=== PATIENT | male | born 1980 | race Caucasian/White ===

== ENCOUNTER 2017-04-14 16:46 | Emergency (ER) | payer OTHER ==
[2017-04-14 17:11] LABS: Basophils # (Auto) 0.1 K/mm3 (0.0-0.1); Basophils % (Auto) 0.8 % (0.0-1.8); Eosinophils # (Auto) 0.1 K/mm3 (0.0-0.4); Eosinophils % (Auto) 0.9 % (0.0-4.3); Hematocrit 49.4 % (35.5-45.6); Lymphocytes # (Auto) 3.3 K/mm3 (1.2-5.4); Mean Corpuscular HGB Conc 32 % (32-34); Mean Corpuscular Hemoglobin 28 pg (28-32); Mean Corpuscular Volume 85 fl (84-94); Monocytes # (Auto) 0.5 K/mm3 (0.0-0.8); Monocytes % (Auto) 6.7 % (0.0-7.3); Platelet Count 247 K/mm3 (140-440); Red Blood Count 5.83 M/mm3 (3.65-5.03); Red Cell Distribution Width 13.1 % (13.2-15.2)
[2017-04-14 19:34] LABS: BUN/Creatinine Ratio 17; Blood Urea Nitrogen 15 mg/dL (9-20); Calcium 10.5 mg/dL (8.4-10.2); Hemolysis Index 27
[2017-04-14 21:44] LABS: Bilirubin,Urine NEG (Negative); Blood,Urine SM (Negative); Color,Urine Yellow (Yellow); Mucus,Urine FEW /HPF; Nitrite,Urine NEG (Negative); Protein,Urine <15 mg/dL mg/dL (Negative); Urobilinogen,Urine < 2.0 mg/dL (<2.0)
[2017-04-14] MEDS ORDERED: NORVASC ONE (22:10)
--- NOTE | 2017-04-14 23:42 | Emergency Department Report ---
ED General Adult HPI - General Chief complaint: High BP Stated complaint: BP HIGH Time Seen by Provider: 04/14/17 23:19 Source: patient Mode of arrival: Ambulatory Limitations: No Limitations - History of Present Illness Initial comments: 37-year-old male past medical history none presents with complaint of concern for elevated blood pressure. Patient states that 3 weeks ago he had his blood pressure checked in a pharmacy and it was elevated and he was advised by pharmacist to have his blood pressure rechecked. Patient is awake alert and oriented 3 denies chest pain palpitations shortness of breath headache lightheadedness blurry vision abdominal pain nausea vomiting up her lower extremity paresthesias. Patient does not currently have primary care doctor states he was in the ED with a family member and decided to have his blood pressure rechecked today. Patient is fully lucid cooperative and ambulatory. Denies smoking, alcohol or drug use. -: This afternoon Severity scale (0 -10): 0 - Related Data Previous Rx's Medication Instructions Recorded Last Taken Type Blood Pressure Test Kit-Large 1 each QDAY #1 kit 04/15/17 Unknown Rx [Blood Pressure Monitor] amLODIPine [Norvasc] 5 mg PO DAILY #30 tab 04/15/17 Unknown Rx Allergies Allergy/AdvReac Type Severity Reaction Status Date / Time No Known Allergies Allergy Verified 04/14/17 22:17 ED Review of Systems ROS: Stated complaint: BP HIGH Other details as noted in HPI Constitutional: denies: chills, fever Eyes: denies: eye pain, eye discharge, vision change ENT: denies: ear pain, throat pain Respiratory: denies: cough, shortness of breath, wheezing Cardiovascular: denies: chest pain, palpitations Endocrine: no symptoms reported Gastrointestinal: denies: abdominal pain, nausea, diarrhea Genitourinary: denies: urgency, dysuria Musculoskeletal: denies: back pain, joint swelling, arthralgia Skin: denies: rash, lesions Neurological: denies: headache, weakness, paresthesias Psychiatric: denies: anxiety, depression Hematological/Lymphatic: denies: easy bleeding, easy bruising ED Past Medical Hx - Past Medical History Previous Medical History?: Yes Hx Asthma: Yes - Surgical History Past Surgical History?: No - Social History Smoking Status: Never Smoker Substance Use Type: Alcohol - Medications Home Medications: Home Medications Medication Instructions Recorded Confirmed Last Taken Type Blood Pressure Test Kit-Large 1 each QDAY #1 kit 04/15/17 Unknown Rx [Blood Pressure Monitor] amLODIPine [Norvasc] 5 mg PO DAILY #30 tab 04/15/17 Unknown Rx ED Physical Exam - General Limitations: No Limitations General appearance: alert, in no apparent distress - Head Head exam: Present: atraumatic, normocephalic - Eye Eye exam: Present: normal appearance, PERRL, EOMI - ENT ENT exam: Present: mucous membranes moist - Neck Neck exam: Present: normal inspection - Respiratory Respiratory exam: Present: normal lung sounds bilaterally. Absent: respiratory distress - Cardiovascular Cardiovascular Exam: Present: regular rate, normal rhythm. Absent: systolic murmur, diastolic murmur, rubs, gallop - GI/Abdominal GI/Abdominal exam: Present: soft, normal bowel sounds - Rectal Rectal exam: Present: deferred - Extremities Exam Extremities exam: Present: normal inspection - Back Exam Back exam: Present: normal inspection - Neurological Exam Neurological exam: Present: alert, oriented X3 - Psychiatric Psychiatric exam: Present: normal affect, normal mood - Skin Skin exam: Present: warm, dry, intact, normal color. Absent: rash ED Course Vital Signs 04/14/17 04/14/17 04/15/17 16:50 22:06 00:01 Temperature 97.5 F L 98.1 F Pulse Rate 110 H 94 H 90 Respiratory 20 18 18 Rate Blood Pressure 151/104 Blood Pressure 141/101 133/100 [Right] O2 Sat by Pulse 99 100 99 Oximetry ED Medical Decision Making - Lab Data Result diagrams: 04/14/17 16:55 04/14/17 16:55 - Medical Decision Making A/P: Asymptomatic hypertension 1-patient has no clinical symptoms whatsoever on clinical interview 2-follow-up with primary care patient will be referred 3-as per my discussion with Dr. Steward and review of labs no indication for further intervention at this time patient must follow up as an outpatient. Will start patient on low-dose amlodipine and I advised patient that it is imperative for him to follow-up in an outpatient basis with primary care Critical care attestation.: If time is entered above; I have spent that time in minutes in the direct care of this critically ill patient, excluding procedure time. ED Disposition Clinical Impression: Asymptomatic hypertension Disposition: TO HOME OR SELFCARE Is pt being admited?: No Does the pt Need Aspirin: No Condition: Stable Instructions: Hypertension (ED), Low Sodium Diet (ED) Prescriptions: amLODIPine [Norvasc] 5 mg PO DAILY #30 tab Blood Pressure Test Kit-Large [Blood Pressure Monitor] 1 each [facility] QDAY #1 kit Referrals: [facility] [Outside] - 3-5 Days [facility] [Outside] - 3-5 Days Forms: Work/School Release Form(ED) Time of Disposition: 00:35
[2017-04-15 00:02] VITALS: BP 133/100
== END 2017-04-15 00:46 | disposition home or self-care (01) ==
LOC: ED 16:46
DX: I10 Essential (primary) hypertension (principal); J45.909 Unspecified asthma, uncomplicated
CPT/HCPCS: 36415; 80048; 81001; 85025; 99283